=== PATIENT | female | born 1975 | race Caucasian/White ===

== ENCOUNTER 2018-01-24 09:59 | Emergency (ER) | payer OTHER ==
[~2018-01-24] VITALS: Ht 167.6 cm; Wt 101.2 kg
[2018-01-24 10:11] VITALS: BP 146/81
[2018-01-24] MEDS ORDERED: KETOROLAC 60 MG/2 ML VIAL IM ONE (10:40)
[2018-01-24] MEDS ORDERED: DEXAMETHASONE 10 MG/ML VIAL IM ONE (10:40)
[2018-01-24 11:31] VITALS: BP 143/79
== END 2018-01-24 11:31 | disposition home or self-care (01) ==
LOC: MED 09:59
DX: M25.552 Pain in left hip (principal); E11.9 Type 2 diabetes mellitus without complications
CPT/HCPCS: 73502; 96372; 99284; J1100; J1885